=== PATIENT | male | born 1990 | race Caucasian/White ===

== ENCOUNTER → 2018-01-30 | Outpatient (CLI) | payer BC ==
--- NOTE | 2018-01-30 14:04 | PCVCIMAG ---
APPROVED REPORT Study performed: 01/30/2018 12:48:39 Exam: Stress Echocardiogram Indication: Chest pain Patient Location: Echo lab Stress Nurse: Rosette Alanis RN Room #: 2 Status: routine Ht: 6 ft 1 in HR: 75 bpm BP: 112/70 mmHg Rhythm: NSR Medical History Medical History: No history of CAD Cardiac Risk Factors: FHX of CAD Previous Cardiac Procedures: none Pretest Chest Pain Characteristics: Non-exertional Chest pain Exercise History: Physically active Procedure The patient underwent an Exercise Stress Test using the Lili Protocol. Blood pressure, heart rate, and EKG were monitored. An Echocardiogram was performed by cryptological technician in four stages in quad fashion. At peak stress, four selected images were obtained and placed side by side with resting images for comparison. Stress Test Details Stress Test: Exercise stress testing was performed using a Lili protocol. HR Resting HR: 75 bpmMax Heart Rate (APMHR): 194 bpm Max HR Achieved: 184 bpmTarget HR (85% APMHR): 164 bpm % of APMHR: 94 Recovery HR: 114 bpm HR response to stress: Normal HR response to stress BP Resting BP: 112/70 mmHg Max BP: 138/64 mmHg Recovery BP: 128/70 mmHg ECG Resting ECG: Sinus Rhythm Stress ECG: Sinus Rhythm ST Change: Non-ischemic, Normal Maximum ST Deviation: 0 mm Arrhythmia: Rare PVCs Recovery ECG: Sinus Rhythm Recovery ST Change: Non-ischemic, Normal Recovery ST Deviation: 0 mm Recovery Arrhythmia: None Clinical Reason for Termination: Maximal effort Exercise duration: 13 min 24 sec Highest Stage Achieved: Stage 5: 5.0 mph at 18% grade. Exercise capacity: 17.2 METs Overall Exercise Capacity for Age: Excellent Scale: Active Angina Score: Non-Limiting No complications. Stress ECG Conclusion The patient exercised according to the LILI protocol for 13:24 mins; achieving a work level of 17.2 METS. The resting heart rate of 75 bpm gracy to a maximum heart rate of 184 bpm. This value represent 94% of the maximal, age-predicted heart rate. The resting blood pressure of 112/70 mmHg, gracy to a maximum blood pressure of 138/64 mmHg. The exercise test was stopped due to fatigue. Valle Treadmill Score is 9.0 which is Low risk. Pre-Stress Echo The resting Echocardiogram showed normal left ventricular contractility with an estimated Ejection Fraction of about 55-60%. Normal wall motion in all segments on baseline images. Post-Stress Echo The stress Echocardiogram showed normal left ventricular contractility with an estimated Ejection Fraction of about 65-70%. Normal augmentation of wall motion in all segments on post stress images. Clinical No clinical or ECG evidence for ischemia. Conclusion Clinical Response: Non-ischemic Exercise Capacity: Superior Stress ECG Response: Non-ischemic Stress Echo Images: Non-ischemic No clinical, EKG or echocardiographic evidence for ischemia. No echocardiographic evidence for exercise induced ischemia. Normal stress echocardiogram with maximal exercise stress. <Conclusion> No clinical, EKG or echocardiographic evidence for ischemia. No echocardiographic evidence for exercise induced ischemia. Normal stress echocardiogram with maximal exercise stress.
== END | disposition home or self-care (01) ==
LOC: PCVCIMAG 13:04
PROVIDERS: ATTEND Internal Medicine
DX: R07.9 Chest pain, unspecified (principal)
CPT/HCPCS: 93325; 93351